=== PATIENT | male | born 1945 | race Caucasian/White ===

== ENCOUNTER 2017-07-26 12:48 | Emergency (ER) | payer MEDICARE, MEDICAID ==
[~2017-07-26] VITALS: Ht 165.1 cm; Wt 98.0 kg
[~2017-07-26 12:48] MED LIST: BACT800T5 PO; DIABETES PILL; IBUP-232 PO
[2017-07-26 13:02] VITALS: BP 116/84; PULSE 87; RESP 24; TEMP 98.4; O2SAT 98
--- NOTE | 2017-07-26 14:05 | PD ---
HPI Chief Complaint: Respiratory Symptoms Time Seen by Provider: 13:46 Travel History International Travel<30 days: No Contact w/Intl Traveler<30days: No Traveled to known affect area: No History of Present Illness HPI This patient sent in prominent cough for 2 months. He is a chronic cigarette smoker for many decades. Twice yesterday after a prolonged coughing fit where he couldn't catch his breath she passed out. One time he bent his knee back during the fall and his knee struck a table. He complains of left knee pain. He is ambulatory but with a limp. No head injury. No head or neck pain. Symptom severity is moderate. He did not have any presyncopal symptoms or chest pain or palpitations Prior to the coughing fit. No alleviating factors. Syncopal episode started yesterday for duration one day with 2 events PFSH Past Medical History Depression: Yes Diabetes: Yes Patient Takes Glucophage: Yes Tetanus Vaccination: < 5 Years Influenza Vaccination: No Past Surgical History Eye Surgery: Yes (LASIK) Genitourinary Surgery: Yes (PENILE SKIN REMOVAL 2014) Other Surgery: Yes (L WRIST R/T DOG BITE) Social History Alcohol Use: No Tobacco Use: No Substance Use: Yes (Marijuana) Allergies-Medications (Allergen,Severity, Reaction): Coded Allergies: No Known Allergies (Unverified , 07/26/17) Reported Meds & Prescriptions Reported Meds & Active Scripts Active Review of Systems General / Constitutional: No: Fever Eyes: No: Visual changes HENT: Positive: Lightheadedness, No: Headaches Cardiovascular: Positive: Syncope, No: Chest Pain or Discomfort Respiratory: Positive: Cough, No: Shortness of Breath Gastrointestinal: No: Abdominal Pain Genitourinary: No: Dysuria Musculoskeletal: Positive: Weakness, No: Pain Skin: No Rash Neurologic: Positive: Weakness, Dizziness, Syncope Psychiatric: No: Depression Endocrine: No: Polydipsia Hematologic/Lymphatic: No: Easy Bruising Physical Exam Narrative GENERAL: Well-nourished, well-developed patient in no apparent distress. SKIN: Focused skin assessment reveals no rash and nodules. Skin is Warm and dry. HEAD: Atraumatic. Normocephalic. EYES: Pupils equal and round. No scleral icterus. No injection or drainage. ENT: No nasal bleeding or discharge. Mucous membranes pink and moist. NECK: Trachea midline. No JVD. CARDIOVASCULAR: Regular rate and rhythm. No murmur appreciated. RESPIRATORY: No accessory muscle use. Clear to auscultation. Breath sounds equal bilaterally. GASTROINTESTINAL: Abdomen soft, non-tender, nondistended. Hepatic and splenic margins not palpable. MUSCULOSKELETAL: No obvious deformities. No clubbing. No cyanosis. No edema. Has some tenderness in the left knee at the medial joint line NEUROLOGICAL: Awake and alert. No obvious cranial nerve deficits. Motor grossly within normal limits. Normal speech. PSYCHIATRIC: Appropriate mood and affect; insight and judgment normal. 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 [id number] (07/26/17 13:54) Iv Access Insert/Monitor (07/26/17 13:54) Complete Blood Count With Diff (07/26/17 13:54) Basic Metabolic Panel (Bmp) (07/26/17 13:54) Knee, Complete (4vws) (07/26/17 ) Crutches (07/26/17 15:23) Labs Laboratory Tests Test 07/26/17 14:30 White Blood Count 9.5 TH/MM3 Red Blood Count 4.48 MIL/MM3 Hemoglobin 13.4 GM/DL Hematocrit 39.6 % Mean Corpuscular Volume 88.4 FL Mean Corpuscular Hemoglobin 29.9 PG Mean Corpuscular Hemoglobin Concent 33.9 % Red Cell Distribution Width 12.4 % Platelet Count 188 TH/MM3 Mean Platelet Volume 8.7 FL Neutrophils (%) (Auto) 59.4 % Lymphocytes (%) (Auto) 30.6 % Monocytes (%) (Auto) 6.4 % Eosinophils (%) (Auto) 2.6 % Basophils (%) (Auto) 1.0 % Neutrophils # (Auto) 5.7 TH/MM3 Lymphocytes # (Auto) 2.9 TH/MM3 Monocytes # (Auto) 0.6 TH/MM3 Eosinophils # (Auto) 0.2 TH/MM3 Basophils # (Auto) 0.1 TH/MM3 CBC Comment DIFF FINAL Differential Comment Blood Urea Nitrogen 27 MG/DL Creatinine 1.30 MG/DL Random Glucose 227 MG/DL Calcium Level 9.4 MG/DL Sodium Level 134 MEQ/L Potassium Level 4.5 MEQ/L Chloride Level 101 MEQ/L Carbon Dioxide Level 25.3 MEQ/L Anion Gap 8 MEQ/L Estimat Glomerular Filtration Rate 55 ML/MIN [facility] Medical Decision Making Medical Screen Exam Complete: Yes Emergency Medical Condition: Yes Medical Record Reviewed: Yes Differential Diagnosis Cough syncope, cardiac arrhythmia, vasovagal episode Narrative Course I have reviewed the patient's electronic medical record. IV placed I reviewed his EKG which shows sinus rhythm with no ST elevation or ectopy Extended cardiac monitoring shows sinus rhythm without ectopy CBC is normal Metabolic profile is normal I reviewed his chest x-ray which is normal I reviewed his left knee x-rays which show degenerative change and effusion and soft tissue swelling but no fracture I gave him crutches. He should ice and elevate and limit weightbearing and follow with orthopedist for soft tissue left knee injury. I prescribed him albuterol inhaler to try to limit his cough spells. He quit smoking 2 days ago he says Diagnosis Primary Impression: Syncope, tussive Additional Impressions: Soft tissue injury of left knee Qualified Codes: S89.92XA - Unspecified injury of left lower leg, initial encounter Bronchitis Additional Instructions: The patient was advised to follow up with their physician and return if they worsen. Follow with orthopedist Ice and elevate left knee and use crutches Med/Other Pt SpecificInfo: Prescription(s) given Scripts Albuterol 18 GM Inh (Ventolin Hfa 18 GM Inh) 90 Mcg/Act Aer 2 PUFF INH Q4H Y for SHORTNESS OF BREATH, #1 INHALER 0 Refills Prov: Baudilio Elliott MD 07/26/17 Disposition: 01 DISCHARGE HOME Condition: Stable Baudilio Elliott MD Jul 26, 2017 14:05
[2017-07-26 14:42] LABS: AUTOMATED NEUTROPHIL # 5.7 TH/MM3 (1.8-7.7); BASOPHIL # 0.1 TH/MM3 (0-0.2); EOSINOPHIL # 0.2 TH/MM3 (0-0.4); EOSINOPHIL % 2.6 % (0.0-4.0); HEMATOCRIT 39.6 % (39.0-51.0); HEMO FLAGS DIFF FINAL; LYMPH % 30.6 % (9.0-44.0); LYMPHOCYTE # 2.9 TH/MM3 (1.0-4.8); MEAN CELL VOLUME 88.4 FL (80.0-100.0); MEAN CORPUSCULAR HEMOGLOBIN 29.9 PG (27.0-34.0); MEAN CORPUSCULAR HGB CONC 33.9 % (32.0-36.0); MONO % 6.4 % (0.0-8.0); NEUT % 59.4 % (16.0-70.0); PLATELET COUNT 188 TH/MM3 (150-450); RED BLOOD COUNT 4.48 MIL/MM3 (4.50-5.90); RED CELL DISTRIBUTION WIDTH 12.4 % (11.6-17.2); WHITE BLOOD COUNT 9.5 TH/MM3 (4.0-11.0)
--- NOTE | 2017-07-26 14:43 | RADRPT ---
EXAM DATE/TIME: 07/26/2017 14:06 [facility] COMPARISON: No previous studies available for comparison. INDICATIONS : Cough, short of breath, syncope MEDICAL HISTORY : Diabetes mellitus type II. SURGICAL HISTORY : None. ENCOUNTER: Initial ACUITY: 2 days PAIN SCORE: 0/10 LOCATION: Bilateral chest FINDINGS: A single view of the chest demonstrates the lungs to be symmetrically aerated without evidence of mas s, infiltrate or effusion. The cardiomediastinal contours are unremarkable. Osseous structures are intact. CONCLUSION: No acute disease. Neeraj Maya MD FACR on July 26, 2017 at 14:41 Board Certified Radiologist. This report was verified electronically.
--- NOTE | 2017-07-26 14:44 | RADRPT ---
EXAM DATE/TIME: 07/26/2017 14:07 [facility] COMPARISON: KNEE LEFT COMPLETE (4VWS), February 08, 2016, 18:54. INDICATIONS : Fall, left kne pain MEDICAL HISTORY : Diabetes mellitus type II. SURGICAL HISTORY : None. ENCOUNTER: Initial ACUITY: 2 days PAIN SCORE: 9/10 LOCATION: Left knee FINDINGS: Large joint effusion is evident. Degenerative changes are projected in the patellofemoral compartmen t. There is loss of articular cartilage in the medial compartment. Fractures are appreciated. CONCLUSION: Soft tissue swelling, joint effusion, degenerative changes without fracture. Neeraj Maya MD FACR on July 26, 2017 at 14:41 Board Certified Radiologist. This report was verified electronically.
[2017-07-26 14:56] LABS: POTASSIUM 4.5 MEQ/L (3.5-5.1)
[2017-07-26 14:59] LABS: BICARBONATE 25.3 MEQ/L (21.0-32.0)
[2017-07-26] MEDS ORDERED: VENTAER INH (15:24)
[2017-07-26 15:35] VITALS: BP 122/82; PULSE 88; RESP 18; O2SAT 98
--- NOTE | 2017-07-26 17:11 | EKG ---
Date Performed: 07/26/2017 Time Performed: 14:23:39 PTAGE: 72 years EKG: Sinus rhythm NORMAL ECG INTERPRETATION BASED ON A DEFAULT AGE OF 42 YEARS NO PREVIOUS TRACING DOCTOR: Armani Jefferson Interpretating Date/Time 07/26/2017 17:10:36
== END 2017-07-26 15:35 | disposition home or self-care (01) ==
LOC: PHED 12:48
DX: R55 Syncope and collapse (principal); S89.92XA Unspecified injury of left lower leg, initial encounter; J40 Bronchitis, not specified as acute or chronic; M25.462 Effusion, left knee; E11.9 Type 2 diabetes mellitus without complications; Z79.84 Long term (current) use of oral hypoglycemic drugs; Z86.59 Personal history of other mental and behavioral disorders; W22.09XA Striking against other stationary object, initial encounter
CPT/HCPCS: 71010; 73564; 80048; 85025; 93005; 99285; E0113

== ENCOUNTER 2017-09-15 11:00 | Emergency (ER) | payer MEDICARE, MEDICAID ==
[~2017-09-15] VITALS: Ht 165.1 cm; Wt 102.6 kg
[~2017-09-15 11:00] MED LIST changes: -BACT800T5 PO; -DIABETES PILL; -IBUP-232 PO; +VENTAER INH
[2017-09-15 11:03] VITALS: BP 133/63; PULSE 101; RESP 16; TEMP 98.8; O2SAT 97
[2017-09-15] MEDS ORDERED: GLIM2TAB PO (11:17)
[2017-09-15] MEDS ORDERED: DAPA1TAB PO (11:17)
[2017-09-15] MEDS ORDERED: SITA50TA4 PO (11:17)
[2017-09-15] MEDS ORDERED: LANTUS2P SQ (11:17)
[2017-09-15] MEDS: RESP: ALBUTEROL 2.5 MG/IPRATROPIUM 0.5 MG NEB (SCH) INH ×2 (11:43→11:44)
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
[2017-09-15] MEDS ORDERED: CHLORPHENIR/HYDROCOD LIQUID 8 MG/10 MG/5 ML CUP PO ONE (12:00)
--- NOTE | 2017-09-15 12:12 | RADRPT ---
EXAM DATE/TIME: 09/15/2017 11:32 [facility] COMPARISON: CHEST PA & LAT, September 03, 2015, 11:20. INDICATIONS : Cough MEDICAL HISTORY : None. SURGICAL HISTORY : None. ENCOUNTER: Initial ACUITY: 1 month PAIN SCORE: 7/10 LOCATION: Bilateral chest FINDINGS: PA and lateral views of the chest demonstrate the lungs to be symmetrically aerated without evidence of mass, infiltrate or effusion. The cardiomediastinal contours are unremarkable. Osseous structure s are intact. CONCLUSION: The lungs are clear. Dajuan Peoples MD on September 15, 2017 at 12:10 Board Certified Radiologist. This report was verified electronically.
[2017-09-15 12:14] VITALS: BP 122/54; PULSE 100; RESP 18; O2SAT 100
[2017-09-15] MEDS ORDERED: VENTAER INH (12:41)
[2017-09-15] MEDS ORDERED: TUSSSUS2 PO (12:41)
--- NOTE | 2017-09-15 17:50 | EKG ---
Date Performed: 09/15/2017 Time Performed: 11:51:58 PTAGE: 72 years EKG: SINUS TACHYCARDIA ABNORMAL RHYTHM ECG PREVIOUS TRACING : 07/26/2017 14.23 Compared to the previous tracing sinus rate has increased DOCTOR: Jose Rafael Junior Interpretating Date/Time 09/15/2017 17:47:51
== END 2017-09-15 13:15 | disposition home or self-care (01) ==
LOC: PHED 11:00
DX: J98.01 Acute bronchospasm (principal); R05 Cough; R07.89 Other chest pain; R25.1 Tremor, unspecified; R94.31 Abnormal electrocardiogram [ECG] [EKG]; E11.9 Type 2 diabetes mellitus without complications; Z79.4 Long term (current) use of insulin; Z86.59 Personal history of other mental and behavioral disorders; Z87.891 Personal history of nicotine dependence
CPT/HCPCS: 71020; 83880; 93005; 94640; 94664

== ENCOUNTER → 2017-10-10 | Outpatient (CLI) | payer MEDICARE, OTHER ==
[~2017-10-10] MED LIST changes: +DAPA1TAB PO; +GLIM2TAB PO; +LANTUS2P SQ; +SITA50TA4 PO; +TUSSSUS2 PO
--- NOTE | 2017-10-13 11:17 | RSPPFT ---
DATE OF PROCEDURE: 10/10/17 COMMENTS: The forced vital capacity is low normal but improves to normal after bronchodilator. The FEV1 shows a small reduction with improvement to normal after bronchodilator. The FEV1/FVC ratio is normal. The FEF 25-75 shows a small reduction with no significant improvement after bronchodilator. The total lung capacity is markedly reduced with an increased residual volume and a marked increase in the RV/TLC ratio. 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
== END ==
LOC: HRSP 08:51
PROVIDERS: ATTEND Internal Medicine
DX: R05 Cough (principal); R55 Syncope and collapse
CPT/HCPCS: 94060; 94726; 94729

== ENCOUNTER 2018-04-15 11:18 | Observation (INO) | payer MEDICARE, MEDICAID ==
[~2018-04-15] VITALS: Ht 165.1 cm; Wt 104.0 kg
[2018-04-15] VITALS (10 sets, daily range): BP systolic 137–169; BP diastolic 68–97; PULSE 80–100; RESP 16–22; TEMP 98.1–98.6; O2SAT 95–98
--- NOTE | 2018-04-15 11:39 | PD ---
HPI Chief Complaint: Chest Pain Time Seen by Provider: 11:25 Travel History International Travel<30 days: No Contact w/Intl Traveler<30days: No Traveled to known affect area: No History of Present Illness HPI 73-year-old male says he is having some burning sensation in the lower sternal area. This is been going off and on for about 3 days. Seems a little bit worse when he takes a deep breath. He has been coughing the last couple of weeks. He has not been short of breath. He stopped smoking about 8 months ago. He was here in July 2017 after an episode of tussive syncope. He says that last night he was coughing any had a syncopal episode again. He has a history of diabetes for about 10 years. He does not have a history of coronary artery disease. He does not take aspirin.he is not aware of fever or chills. PFSH Past Medical History Hx Anticoagulant Therapy: No Depression: Yes Diabetes: Yes ?: Not Past Surgical History Eye Surgery: Yes (LASIK) Genitourinary Surgery: Yes (PENILE SKIN REMOVAL 2014) Other Surgery: Yes (L WRIST R/T DOG BITE) Social History Alcohol Use: No Tobacco Use: No Substance Use: Yes (Marijuana) Allergies-Medications (Allergen,Severity, Reaction): Coded Allergies: No Known Allergies (Unverified , 09/15/17) Reported Meds & Prescriptions Reported Meds & Active Scripts Active Reported Farxiga (Dapagliflozin) Unknown Strength Tab Unknown Dose PO BID Glimepiride 2 Mg Tab 2 Mg PO BIDAC Lantus Inj (Insulin Glargine) 1,000 Unit/10 Ml Vial 50 Units SQ BID Janumet Xr (Sitagliptin-Metformin ER) 50-1,000 Mg Tab 1 Tab PO DAILY Review of Systems General / Constitutional: No: Fever, Chills Eyes: No: Diploplia, Blurred Vision HENT: No: Headaches Cardiovascular: Positive: Chest Pain or Discomfort, Syncope, No: Palpitations Respiratory: Positive: Cough, No: Hemoptysis Gastrointestinal: No: Nausea, Vomiting Genitourinary: No: Urgency, Frequency Musculoskeletal: No: Myalgias, Arthralgias Skin: No Rash Neurologic: No: Weakness Endocrine: No: Heat Intolerance Hematologic/Lymphatic: No: Easy Bruising Physical Exam Narrative GENERAL: Well-developed male SKIN: Focused skin assessment warm/dry. HEAD: Atraumatic. Normocephalic. EYES: Pupils equal and round. No scleral icterus. No injection or drainage. ENT: No nasal bleeding or discharge. Mucous membranes pink and moist. NECK: Trachea midline. No JVD. CARDIOVASCULAR: Regular rate and rhythm. No murmur appreciated. RESPIRATORY: No accessory muscle use. Clear to auscultation. Breath sounds equal bilaterally. No chest wall tenderness GASTROINTESTINAL: Abdomen soft, non-tender, nondistended. Hepatic and splenic margins not palpable. MUSCULOSKELETAL: No obvious deformities. No clubbing. No cyanosis. No edema. NEUROLOGICAL: Awake and alert. No obvious cranial nerve deficits. Motor grossly within normal limits. Normal speech. PSYCHIATRIC: Appropriate mood and affect; insight and judgment normal. Data Data Last Documented VS Vital Signs Date Time Temp Pulse Resp B/P (MAP) Pulse Ox O2 Delivery O2 Flow Rate FiO2 04/15/18 12:15 91 16 137/68 (91) 97 Room Air 04/15/18 11:34 98.1 Orders Orders Electrocardiogram (04/15/18 11:35) Complete Blood Count With Diff (04/15/18 11:35) Comprehensive Metabolic Panel (04/15/18 11:35) Troponin I (04/15/18 11:35) B-Type Natriuretic Peptide (04/15/18 11:35) Lipase (04/15/18 11:35) Chest, Single Ap (04/15/18 11:35) Aspirin (Aspirin) (04/15/18 11:45) Insulin Human Regular Inj (Novolin R Inj (04/15/18 12:45) Admit Order (Ed Use Only) (04/15/18 12:43) Labs Laboratory Tests Test 04/15/18 11:55 White Blood Count 7.6 TH/MM3 Red Blood Count 4.46 MIL/MM3 Hemoglobin 13.4 GM/DL Hematocrit 39.2 % Mean Corpuscular Volume 87.9 FL Mean Corpuscular Hemoglobin 29.9 PG Mean Corpuscular Hemoglobin Concent 34.0 % Red Cell Distribution Width 12.3 % Platelet Count 169 TH/MM3 Mean Platelet Volume 9.2 FL Neutrophils (%) (Auto) 71.1 % Lymphocytes (%) (Auto) 19.7 % Monocytes (%) (Auto) 4.1 % Eosinophils (%) (Auto) 4.5 % Basophils (%) (Auto) 0.6 % Neutrophils # (Auto) 5.5 TH/MM3 Lymphocytes # (Auto) 1.5 TH/MM3 Monocytes # (Auto) 0.3 TH/MM3 Eosinophils # (Auto) 0.3 TH/MM3 Basophils # (Auto) 0.0 TH/MM3 CBC Comment DIFF FINAL Differential Comment Blood Urea Nitrogen 15 MG/DL Creatinine 0.98 MG/DL Random Glucose 358 MG/DL Total Protein 7.7 GM/DL Albumin 3.4 GM/DL Calcium Level 8.7 MG/DL Alkaline Phosphatase 62 U/L Aspartate Amino Transf (AST/SGOT) 30 U/L Alanine Aminotransferase (ALT/SGPT) 48 U/L Total Bilirubin 1.1 MG/DL Sodium Level 135 MEQ/L Potassium Level 3.9 MEQ/L Chloride Level 103 MEQ/L Carbon Dioxide Level 24.9 MEQ/L Anion Gap 7 MEQ/L Estimat Glomerular Filtration Rate 75 ML/MIN Troponin I LESS THAN 0.02 NG/ML B-Type Natriuretic Peptide 23 PG/ML Lipase 194 U/L [facility] Medical Decision Making Medical Screen Exam Complete: Yes Emergency Medical Condition: Yes Medical Record Reviewed: Yes Differential Diagnosis Differential includes coronary artery disease, chest wall pain, gastritis, dysrhythmia, cough syncope Narrative Course EKG shows sinus rhythm. It is similar to previous EKG troponin is normal. Patient is having ongoing burning across his chest and I think he needs further evaluation for this. Diagnosis Primary Impression: Chest pain Additional Impression: Syncope Admitting Information Admitting Physician Requests: Observation Yariel Dill MD April 15, 2018 11:39
[2018-04-15] MEDS ORDERED: ASPIRIN 325 MG TAB PO ONE (11:45)
--- NOTE | 2018-04-15 12:03 | RADRPT ---
EXAM DATE: 04/15/2018 11:56 AM EDT AGE/SEX: 73 years / Male INDICATIONS: Cough x 2 weeks, chest pain x 2 days. CLINICAL DATA: This is the patient's initial encounter. Patient reports that signs and symptoms have been present for 2 days and indicates a pain score of 7/10. MEDICAL/SURGICAL HISTORY: Diabetes mellitus type II. None. COMPARISON: [facility], CHEST SINGLE AP, 07/26/2017. . FINDINGS: A single AP view of the chest demonstrates the lungs to be symmetrically aerated without evidence of mass, infiltrate or effusion. The cardiomediastinal contours are unremarkable. Osseous structures a re intact. CONCLUSION: No acute intrathoracic disease. No significant change. Electronically signed by: Cali Cain MD 04/15/2018 12:02 PM EDT
[2018-04-15 12:04] LABS: AUTOMATED NEUTROPHIL # 5.5 TH/MM3 (1.8-7.7); BASOPHIL % 0.6 % (0.0-2.0); EOSINOPHIL # 0.3 TH/MM3 (0-0.4); EOSINOPHIL % 4.5 % (0.0-4.0); HEMATOCRIT 39.2 % (39.0-51.0); HEMOGLOBIN 13.4 GM/DL (13.0-17.0); LYMPH % 19.7 % (9.0-44.0); LYMPHOCYTE # 1.5 TH/MM3 (1.0-4.8); MEAN CELL VOLUME 87.9 FL (80.0-100.0); MEAN CORPUSCULAR HEMOGLOBIN 29.9 PG (27.0-34.0); MEAN PLATELET VOLUME 9.2 FL (7.0-11.0); MONO % 4.1 % (0.0-8.0); MONOCYTE # 0.3 TH/MM3 (0-0.9); NEUT % 71.1 % (16.0-70.0); PLATELET COUNT 169 TH/MM3 (150-450); RED BLOOD COUNT 4.46 MIL/MM3 (4.50-5.90); RED CELL DISTRIBUTION WIDTH 12.3 % (11.6-17.2); WHITE BLOOD COUNT 7.6 TH/MM3 (4.0-11.0)
[2018-04-15 12:10] LABS: CHLORIDE 103 MEQ/L (98-107); SODIUM (NA) 135 MEQ/L (136-145)
[2018-04-15 12:15] LABS: ALBUMIN 3.4 GM/DL (3.4-5.0); BICARBONATE 24.9 MEQ/L (21.0-32.0); CALCIUM 8.7 MG/DL (8.5-10.1)
[2018-04-15 12:16] LABS: BLOOD UREA NITROGEN 15 MG/DL (7-18); GLUCOSE,RANDOM 358 MG/DL (74-106)
[2018-04-15 12:18] LABS: ALT (GPT) 48 U/L (12-78); AST (GOT) 30 U/L (15-37)
[2018-04-15 12:19] LABS: ALKALINE PHOSPHATASE 62 U/L (45-117); CREATININE 0.98 MG/DL (0.60-1.30); GLOMERULAR FILTRATION RATE 75 ML/MIN (>89)
[2018-04-15 12:20] LABS: TOTAL BILIRUBIN ADULT 1.1 MG/DL (0.2-1.0); TOTAL PROTEIN 7.7 GM/DL (6.4-8.2)
[2018-04-15 12:23] LABS: TROPONIN I LESS THAN 0.02 NG/ML (0.02-0.05)
[2018-04-15] MEDS ORDERED: INSULIN HUMAN REGULAR 1,000 UNITS/10 ML VIAL SQ ONE (12:45)
[2018-04-15] MEDS ORDERED: SODIUM CHLOR 0.9% 1000 ML INJ 1,000 ML IV SCH (13:43)
[2018-04-15] MEDS ORDERED: MORPHINE SULFATE 4 MG/ML INJ IV PUSH PRN (13:45)
[2018-04-15] MEDS ORDERED: SODIUM CHLORIDE 0.9% FLUSH 10 ML FLUSH IV FLUSH PRN (13:45)
[2018-04-15] MEDS ORDERED: ACETAMINOPHEN 500 MG CPLT PO PRN (13:45)
[2018-04-15] MEDS ORDERED: NITROGLYCERIN 0.4 MG SL 25 TABS/BTL SL PRN (13:45)
--- NOTE | 2018-04-15 13:52 | HHI.HP ---
[facility] Dylan Thakkar M.D. Admission Diagnosis CHEST PAIN, SYNCOPE Diagnoses: (1) Chest pain Diagnosis: Principal (2) Syncope Diagnosis: Principal Chief Complaint: Chest pain Travel History International Travel<30 Days: No Contact w/Intl Traveler <30 Da: No Traveled to Known Affected Are: No History of Present Illness 73-year-old male with known history of diabetes, arthritis who presented the hospital because of chest pain. Patient indicates that since yesterday morning he has had a constant chest discomfort which he describes as a tightness and burning sensation in his mid chest region without any radiation to the neck, back, shoulder, arm. States that the pain is a 7/10 on a pain scale without any worsening or improving. He denies any nausea, vomiting, diaphoresis, shortness of breath, dyspnea. Patient indicates that he has had an upper respiratory infection for the last week with persistent cough, congestion, phlegm. Patient indicates that last night he had a coughing fit in which he passed out. Indicates back in July 2017 he came to the emergency department for the same symptom. During that episode he was evaluated by ER physician and discharged home for tussive syncope. Patient did not follow-up with any outpatient workup. Presently he has been recommended observation in the hospital because of his persistent chest pain. He does have risk factors to include age, diabetes, tobacco use, family history of heart disease. Review of Systems Respiratory: COMPLAINS OF: Cough Cardiovascular: COMPLAINS OF: Chest pain, Syncope Except as stated in HPI: all other systems reviewed are Neg Past Family Social History Past Medical History Diabetes Arthritis Past Surgical History Lasix eye surgery Surgery on left wrist secondary to dog bite Penile skin removal Reported Medications Reported Meds & Active Scripts Active Reported Farxiga (Dapagliflozin) Unknown Strength Tab Unknown Dose PO BID Glimepiride 2 Mg Tab 2 Mg PO BIDAC Lantus Inj (Insulin Glargine) 1,000 Unit/10 Ml Vial 50 Units SQ BID Janumet Xr (Sitagliptin-Metformin ER) 50-1,000 Mg Tab 1 Tab PO DAILY Allergies: Coded Allergies: No Known Allergies (Unverified , 09/15/17) Family History Reviewed and significant for father with heart disease, Social History Patient quit smoking 6 months ago, prior to that he smoked one half pack of cigarette a day since he was 20 years old. Denies any alcohol. Does smoke marijuana occasionally Physical Exam Vital Signs Vital Signs Date Time Temp Pulse Resp B/P (MAP) Pulse Ox O2 Delivery O2 Flow Rate FiO2 04/15/18 13:32 04/15/18 13:16 89 16 96 Room Air 04/15/18 13:07 87 16 152/86 (108) 97 Room Air 04/15/18 12:15 91 16 137/68 (91) 97 Room Air 04/15/18 11:36 100 04/15/18 11:34 98.1 100 18 143/77 (99) 97 Physical Exam GENERAL: Well-developed, well-nourished, in no acute distress. alert and orientated HEENT: Head is normocephalic without any lesions or masses noted. Facial features are symmetric. Eyes: Pupils equal round reactive to light. Extraocular muscles are intact. Conjunctivae were clear. Oropharyngeal: Pharynx without any erythema edema. Tongue is midline without deviation. Buccal mucosa is moist without any masses or lesions NECK: Supple without any masses. Trachea midline no deviation. No JVD, no bruits are appreciated CARDIAC: Regular rhythm, regular rate. S1/S2 are heard. No murmurs gallops or rubs. LUNGS: Clear to auscultation bilaterally. No wheeze, rhonchi or rales. No use of accessory muscles on inspiration or expiration. ABDOMEN: Soft, nontender. Nondistended. Bowel sounds heard in all 4 quadrants. No organomegaly or masses. Negative rebound, negative guarding EXTREMITIES: No edema, pulses are equal bilaterally. No cyanosis or clubbing NEUROLOGY: Mood and affect appear appropriate. Cranial nerves II through XII grossly intact. Muscle strength 5/5 in upper and lower extremities bilaterally. Deep tendon reflexes are 2+ in upper and lower extremities bilaterally. Laboratory Laboratory Tests Test 04/15/18 11:55 White Blood Count 7.6 Red Blood Count 4.46 Hemoglobin 13.4 Hematocrit 39.2 Mean Corpuscular Volume 87.9 Mean Corpuscular Hemoglobin 29.9 Mean Corpuscular Hemoglobin Concent 34.0 Red Cell Distribution Width 12.3 Platelet Count 169 Mean Platelet Volume 9.2 Neutrophils (%) (Auto) 71.1 Lymphocytes (%) (Auto) 19.7 Monocytes (%) (Auto) 4.1 Eosinophils (%) (Auto) 4.5 Basophils (%) (Auto) 0.6 Neutrophils # (Auto) 5.5 Lymphocytes # (Auto) 1.5 Monocytes # (Auto) 0.3 Eosinophils # (Auto) 0.3 Basophils # (Auto) 0.0 CBC Comment DIFF FINAL Differential Comment Blood Urea Nitrogen 15 Creatinine 0.98 Random Glucose 358 Total Protein 7.7 Albumin 3.4 Calcium Level 8.7 Alkaline Phosphatase 62 Aspartate Amino Transf (AST/SGOT) 30 Alanine Aminotransferase (ALT/SGPT) 48 Total Bilirubin 1.1 Sodium Level 135 Potassium Level 3.9 Chloride Level 103 Carbon Dioxide Level 24.9 Anion Gap 7 Estimat Glomerular Filtration Rate 75 Troponin I LESS THAN 0.02 B-Type Natriuretic Peptide 23 Lipase 194 Result Diagram: 04/15/18 1155 04/15/18 1155 Imaging Last Impressions Chest X-Ray 04/15/18 1135 Signed Impressions: CONCLUSION: Caprini VTE Risk Assessment Caprini VTE Risk Assessment: Mod/High Risk (score >= 2) Caprini Risk Assessment Model Point Value = 1 Point Value = 2 Point Value = 3 Point Value = 5 Age 41-60 Minor surgery BMI > 25 kg/m2 Swollen legs Varicose veins or History of unexplained or recurrent spontaneous Oral contraceptives or hormone replacement Sepsis (< 1 month) Serious lung disease, including pneumonia (< 1 month) Abnormal pulmonary function Acute myocardial infarction Congestive heart failure (< 1 month) History of inflammatory bowel disease Medical patient at bed rest Age 61-74 Arthroscopic surgery Major open surgery (> 45 min) Laparoscopic surgery (> 45 min) Malignancy Confined to bed (> 72 hours) Immobilizing plaster cast Central venous access Age >= 75 History of VTE Family history of VTE Factor V Leiden Prothrombin [id number] Lupus anticoagulant Anticardiolipin antibodies Elevated serum homocysteine Heparin-induced thrombocytopenia Other congenital or acquired thrombophilia Stroke (< 1 month) Elective arthroplasty Hip, pelvis, or leg fracture Acute spinal cord injury (< 1 month) Prophylaxis Regimen Total Risk Factor Score Risk Level Prophylaxis Regimen 0-1 Low Early ambulation 2 Moderate Order ONE of the following: *Sequential Compression Device (SCD) *Heparin 5000 units SQ BID 3-4 Higher Order ONE of the following medications: *Heparin 5000 units SQ TID *Enoxaparin/Lovenox 40 mg SQ daily (WT < 150 kg, CrCl > 30 mL/min) *Enoxaparin/Lovenox 30 mg SQ daily (WT < 150 kg, CrCl > 10-29 mL/min) *Enoxaparin/Lovenox 30 mg SQ BID (WT < 150 kg, CrCl > 30 mL/min) AND/OR *Sequential Compression Device (SCD) 5 or more Highest Order ONE of the following medications: *Heparin 5000 units SQ TID (Preferred with Epidurals) *Enoxaparin/Lovenox 40 mg SQ daily (WT < 150 kg, CrCl > 30 mL/min) *Enoxaparin/Lovenox 30 mg SQ daily (WT < 150 kg, CrCl > 10-29 mL/min) *Enoxaparin/Lovenox 30 mg SQ BID (WT < 150 kg, CrCl > 30 mL/min) AND *Sequential Compression Device (SCD) Assessment and Plan Assessment and Plan 73-year-old male who presented the hospital because of over 1 day history of constant chest discomfort and syncopal episode during coughing last night. Chest pain, atypical -Patient with increased risk factors to include age, diabetes, tobacco use -We will continue to rule the patient out for acute coronary event with serial cardiac enzymes and serial EKGs -The patient ruled out for acute coronary event will pursue myocardial perfusion study to rule out any underlying ischemia -Continue aspirin, nitroglycerin as needed -Obtain d-dimer and possible CTA of the chest if positive -Continue monitor telemetry Tussive syncope -This is recurrent and had ER evaluation done in July 2017. Patient has not had any recurrence since last night. -Obtain CT of the brain to rule out any acute abnormality -Obtain carotid ultrasound to rule out any carotid stenosis -Recommend antitussive -Continue IV fluids -Check orthostatic vitals Diabetes -Accu-Cheks with sliding scale insulin DVT prevention -Sequential compression devices Baudilio Long April 15, 2018 13:52
[2018-04-15] MEDS ORDERED: GLUCAGON 1 MG/ML VIAL OTHER PRN (14:00)
[2018-04-15] MEDS ORDERED: guaiFENesin/DEXTROMETHORPHAN 200 MG/20 MG/10 ML CUP PO PRN (14:00)
[2018-04-15] MEDS ORDERED: DEXTROSE 50% IN WATER 50 ML VIAL(D50) IV PUSH PRN (14:00)
--- NOTE | 2018-04-15 15:49 | RADRPT ---
EXAM DATE: 04/15/2018 3:45 PM EDT AGE/SEX: 73 years / Male INDICATIONS: Syncope. CLINICAL DATA: This is the patient's initial encounter. Patient reports that signs and symptoms have been present for 1 day and indicates a pain score of 0/10. MEDICAL/SURGICAL HISTORY: Diabetes. Syncope. . Penile skin removal. Lasik eye surgery. COMPARISON: No prior [facility] exams available for comparison. VELOCITY PARAMETERS: ICA/CCA Ratio: Right 1.1 , Left 1.3 ICA: Right 96.4 cm/sec, Left 113.1 cm/sec CCA: Right 86.5 cm/sec, Left 85.5 cm/sec ECA: Right 75.8 cm/sec, Left 52.9 cm/sec Vertebral: Right 51.5 cm/sec antegrade, Left 77.5 cm/sec antergrade FINDINGS: Right Carotid: Mild atherosclerotic plaquing at the bifurcation. No significant stenosis is visualize d. The waveforms are within normal limits. Left Carotid: Mild atherosclerotic plaquing at the bifurcation. No significant stenosis is visualized . The waveforms are within normal limits. Other: None. CONCLUSION: 1. Mild atherosclerotic plaquing at both carotid bifurcations. 2. No focal high-grade or hemodynamically significant stenosis is demonstrated. Electronically signed by: Cali Cain MD 04/15/2018 3:48 PM EDT
--- NOTE | 2018-04-15 17:20 | RADRPT ---
EXAM DATE: 04/15/2018 5:12 PM EDT AGE/SEX: 73 years / Male INDICATIONS: Syncopal episode with loss of consciousness. CLINICAL DATA: This is the patient's initial encounter. Patient reports that signs and symptoms have been present for 1 day and indicates a pain score of 0/10. MEDICAL/SURGICAL HISTORY: Diabetes mellitus type II. None. RADIATION DOSE: 60.56 CTDI (mGy) COMPARISON: [facility], CT BRAIN W/O CONTRAST, 02/08/2016. . TECHNIQUE: CT of the head without contrast. Using automated exposure control and adjustment of the mA and/or kV according to patient size, radiation dose was kept as low as reasonably achievable to ob tain optimal diagnostic quality images. FINDINGS: Cerebrum: The ventricles are normal for age. No evidence of midline shift, mass lesion, hemorrhage or acute infarction. No extraaxial fluid collections are seen. Posterior Fossa: The cerebellum and brainstem are intact. The 4th ventricle is midline. The cerebe llopontine angle is unremarkable. Extracranial: The visualized portion of the orbits is intact. Skull: The calvaria is intact. No evidence of skull fracture. Abundant fatty soft tissues overlying the occiput was present previously and is basically stable. CONCLUSION: 1. Prominent fatty soft tissues at the base of the occiput and upper neck. Findings are nonspecific but stable. Is the patient cushingoid or on long-term exogenous steroids. 2. Otherwise negative. No acute intracranial process. Electronically signed by: Je Lu MD 04/15/2018 5:19 PM EDT
[2018-04-15] MEDS: INSULIN ASPART SUPPLEMENTAL SCALE SQ SCH ×2 (18:04→21:41)
[2018-04-15 18:34] LABS: TROPONIN I LESS THAN 0.02 NG/ML (0.02-0.05)
[2018-04-15] MEDS: ACETAMINOPHEN/HYDROcodone 325 MG/7.5 MG TAB PO PRN (20:09)
[2018-04-15] MEDS: SODIUM CHLORIDE 0.9% FLUSH 10 ML FLUSH IV FLUSH SCH (21:00)
[2018-04-15] MEDS ORDERED: TEMAZEPAM 15 MG CAP PO PRN (21:00)
[2018-04-16] VITALS: BP 155/76; PULSE 87; RESP 22; TEMP 98.4; O2SAT 94
[2018-04-16 01:29] LABS: TROPONIN I LESS THAN 0.02 NG/ML (0.02-0.05)
[2018-04-16] MEDS: ACETAMINOPHEN/HYDROcodone 325 MG/7.5 MG TAB PO PRN (02:27)
[2018-04-16 04:00] VITALS: BP 166/79; PULSE 98; RESP 22; TEMP 97.4; O2SAT 94
[2018-04-16 07:00] VITALS: BP 152/78; PULSE 96; RESP 18; TEMP 97.2; O2SAT 97
[2018-04-16] MEDS: INSULIN ASPART SUPPLEMENTAL SCALE SQ SCH ×2 (07:51→12:00)
[2018-04-16] MEDS: SODIUM CHLORIDE 0.9% FLUSH 10 ML FLUSH IV FLUSH SCH (08:14)
[2018-04-16] MEDS ORDERED: ASPIRIN 325 MG TAB PO SCH (09:00)
[2018-04-16] MEDS ORDERED: REGADENOSON INJ 0.4 MG/5 ML SYR IV ONE (11:49)
--- NOTE | 2018-04-16 13:29 | RADRPT ---
EXAM DATE: 04/16/2018 1:19 PM EDT AGE/SEX: 73 years / Male INDICATIONS:Angina. . Midchest pain. CLINICAL DATA: This is the patient's initial encounter. Patient reports that signs and symptoms have been present for 1 day and indicates a pain score of 1/10. MEDICAL/SURGICAL HISTORY: Hypertension. Diabetes mellitus type II. Syncope. . None. COMPARISON: No prior [facility] exams available for comparison. DOSE: 35 mCi Tc 99m Myoview at stress 11 mCi [id number] at rest 0.4 mg Lexiscan STRESS SYMPTOMS: Dyspnea. EJECTION FRACTION: 68 % TECHNIQUE: The patient underwent pharmacologic stress with infusion of prescribed dose. Continuous ECG tracing was monitored during stress. Gated SPECT imaging was performed after stress and conventi onal SPECT imaging was performed at rest. The examination was performed on a SPECT /CT scanner, both attenuation and non-corrected datasets were reviewed. FINDINGS: Distribution: The maximum perfused segment at stress is in the septal wall. Perfusion Study: The pattern of perfusion at stress is within normal limits. Gated Study: There are intact wall motion and wall thickening without hypokinetic or dyskinetic segm ents. The ejection fraction is calculated at 68%. RISK CATEGORY: Low (<1% Annual Motality Rate) CONCLUSION: 1. No significant reversibility to suggest ischemia. 2. Wall motion normal with ejection fraction 68%. Electronically signed by: Hakeem Santa MD 04/16/2018 1:28 PM EDT
--- NOTE | 2018-04-16 13:52 | HHI.DCPOC ---
Discharge Care Plan Diagnosis: (1) Chest pain Goals to Promote Your Health * To prevent worsening of your condition and complications * To maintain your health at the optimal level Directions to Meet Your Goals Take your medications as prescribed Follow your dietary instruction Follow activity as directed Keep your appointments as scheduled Take your immunizations and boosters as scheduled If your symptoms worsen call your PCP, if no PCP go to Urgent Care Center or Emergency Room Smoking is Dangerous to Your Health. Avoid second hand smoke Call the 24-hour hour crisis hotline for domestic abuse at Baudilio Long April 16, 2018 13:52
--- NOTE | 2018-04-16 13:56 | HHI.PR ---
Subjective Remarks Follow-up atypical chest pain April 16, 2018-patient seen and examined, nuclear stress test negative. Patient denies any chest pain since admission. Only reports headaches. Objective Vitals Vital Signs Date Time Temp Pulse Resp B/P (MAP) Pulse Ox O2 Delivery O2 Flow Rate FiO2 04/16/18 07:00 97.2 96 18 152/78 (102) 97 04/16/18 04:00 97.4 98 22 166/79 (108) 94 04/16/18 00:00 98.4 87 22 155/76 (102) 94 04/15/18 20:30 93 04/15/18 20:00 98.3 89 22 144/97 (113) 98 04/15/18 19:48 98 21 04/15/18 19:00 86 04/15/18 15:00 80 139/70 (93) 143/78 (99) 140/73 (95) 04/15/18 14:00 98.6 91 18 169/72 (104) 95 04/15/18 14:00 98.6 91 18 169/72 (104) 04/15/18 13:55 95 21 I/O 04/15/18 04/15/18 04/15/18 04/16/18 04/16/18 04/16/18 07:00 15:00 23:00 07:00 15:00 23:00 Intake Total 540 ml 1000 ml Output Total 900 ml Balance -360 ml 1000 ml Intake Oral 540 ml IV Total 1000 ml Output Urine Total 900 ml # Voids 2 # Bowel Movements 0 Result Diagram: 04/15/18 1155 04/15/18 1155 Imaging Last Impressions Myocardial Perfusion Scan Nuc Med 04/16/18 0600 Signed Impressions: CONCLUSION: 1. No significant reversibility to suggest ischemia. 2. Wall motion normal with ejection fraction 68%. Chest X-Ray 04/15/18 1135 Signed Impressions: CONCLUSION: No acute intrathoracic disease. No significant change. Head CT 04/15/18 0000 Signed Impressions: CONCLUSION: 1. Prominent fatty soft tissues at the base of the occiput and upper neck. Fin dings are nonspecific but stable. Is the patient cushingoid or on long-term exo genous steroids. 2. Otherwise negative. No acute intracranial process. Carotid Artery Ultrasound 04/15/18 0000 Signed Impressions: CONCLUSION: 1. Mild atherosclerotic plaquing at both carotid bifurcations. 2. No focal high-grade or hemodynamically significant stenosis is demonstrated . Objective Remarks GENERAL: NAD SKIN: Warm and dry. HEAD: Normocephalic. EYES: No scleral icterus. No injection or drainage. NECK: Supple, trachea midline. No JVD or lymphadenopathy. CARDIOVASCULAR: Regular rate and rhythm without murmurs, gallops, or rubs. RESPIRATORY: Breath sounds equal bilaterally. No accessory muscle use. GASTROINTESTINAL: Abdomen soft, non-tender, nondistended. MUSCULOSKELETAL: No cyanosis, or edema. BACK: Nontender without obvious deformity. No CVA tenderness. A/P Problem List: (1) Chest pain ICD Code: R07.9 - Chest pain, unspecified Status: Acute (2) Syncope ICD Code: R55 - Syncope and collapse Status: Acute Assessment and Plan 73-year-old man with Chest pain, atypical Nuclear stress status ruled out -Continue aspirin, nitroglycerin as needed -Continue monitor telemetry Tussive syncope-resolved since admission -This is recurrent and had ER evaluation done in July 2017. Patient has not had any recurrence since last night. -CT of the brain ruled out any acute abnormality -Carotid ultrasound unremarkable -Recommend antitussive -Continue IV fluids -Orthostatic vitals stable Diabetes -Accu-Cheks with sliding scale insulin DVT prevention -Sequential compression devices Discharge Planning Discharge patient to home Condition on discharge: Improved ADA Diet as tolerated Ad Lauren activity Rx written:see EMR Follow-up with primary care physician in 1 week Micky Gracia MD April 16, 2018 13:56
--- NOTE | 2018-04-16 16:02 | TR ---
Date Performed: 04/16/2018 Time Performed: 12:34:09 DOCTOR: Maynor Weir DRUG LIST: CLINICAL HISTORY: REASON FOR TEST: REASON FOR ENDING: OBSERVATION: CONCLUSION: Lexiscan stress test was performed under standard four minute protocol. Radionuclide was injected one minute prior to ending the test. No electrocardiographic abormalities were present to suggest ischemia. Nuclear imaging and interpretation are pending. COMMENTS:
--- NOTE | 2018-04-17 07:35 | EKG ---
Date Performed: 04/16/2018 Time Performed: 00:46:55 PTAGE: 73 years EKG: Sinus rhythm NORMAL ECG PREVIOUS TRACING : 04/15/2018 17.59 DOCTOR: Ivan Lin Interpretating Date/Time 04/17/2018 07:30:52
--- NOTE | 2018-04-17 08:20 | EKG ---
Date Performed: 04/15/2018 Time Performed: 17:59:53 PTAGE: 73 years EKG: Sinus rhythm NORMAL ECG PREVIOUS TRACING : 04/15/2018 11.21 DOCTOR: Ivan Lin Interpretating Date/Time 04/17/2018 08:15:13
--- NOTE | 2018-04-17 08:33 | EKG ---
Date Performed: 04/15/2018 Time Performed: 11:21:42 PTAGE: 73 years EKG: Sinus rhythm NORMAL ECG PREVIOUS TRACING : 09/15/2017 11.51 DOCTOR: Ivan Lin Interpretating Date/Time 04/17/2018 08:20:27
== END 2018-04-16 15:19 | disposition home or self-care (01) ==
LOC: PHED 11:18 → PHEDA 12:46 → PH3B 13:25
PROVIDERS: ADMIT Hospitalist; ATTEND Hospitalist
DX: R07.9 Chest pain, unspecified (principal); R55 Syncope and collapse; R06.00 Dyspnea, unspecified; E11.9 Type 2 diabetes mellitus without complications; F12.90 Cannabis use, unspecified, uncomplicated; Z72.0 Tobacco use; Z82.49 Family history of ischemic heart disease and other diseases of the circulatory system; Z79.4 Long term (current) use of insulin
CPT/HCPCS: 70450; 71045; 78452; 80053; 82550; 82948; 83690; 83880; 84484; 85025; 85379; 93005; 93017; 93880; 96361; 96372; 96374; 99285; A9502; G0378; J1815; J2785; J7030